=== PATIENT | female | born 1955 | race Caucasian/White ===

== ENCOUNTER → 2016-12-18 | Outpatient (CLI) | payer BC ==
[2015-01-21 15:08] VITALS: BP 130/75
[~2016-12-18] MED LIST: FAMO-63 PO; RANI150C PO; RIZA10TA PO; cpap
--- NOTE | 2016-12-18 16:03 | RAD ---
DATE: 12/18/2016 EXAM: DIGITAL SCREEN BILAT W/CAD HISTORY: Routine screening COMPARISON: 12/11/2015 This study was interpreted with the benefit of Computerized Aided Detection (CAD). The breast parenchyma is primarily fatty replaced. Breast parenchyma level density A. FINDINGS: No new or enlarging breast densities are seen. Benign type calcifications are again noted. No suspicious microcalcifications have developed. IMPRESSION: Stable mammograms without evidence of malignancy. BI-RADS CATEGORY: 2 BENIGN FINDING(S) RECOMMENDED FOLLOW-UP: 12M 12 MONTH FOLLOW-UP PQRS compliance statement: Patient information was entered into a reminder system with a target due date for the next mammogram. Mammography is a sensitive method for finding small breast cancers, but it does not detect them all and is not a substitute for careful clinical examination. A negative mammogram does not negate a clinically suspicious finding and should not result in delay in biopsying a clinically suspicious abnormality. "Our facility is accredited by the [employer] Mammography [employer]."
== END | disposition home or self-care (01) ==
LOC: MAMMO 15:32
PROVIDERS: ATTEND Family Medicine
DX: Z12.31 Encounter for screening mammogram for malignant neoplasm of breast (principal); Z80.3 Family history of malignant neoplasm of breast
CPT/HCPCS: G0202; 77067

== ENCOUNTER → 2017-02-18 | Outpatient (CLI) | payer BC ==
[2015-01-21 15:08] VITALS: BP 130/75
[~2017-02-18] MED LIST changes: +IOHEXOL 300 MG/ML 100ML VIAL. IV ONE
--- NOTE | 2017-02-18 15:32 | KCIC ---
PQRS Compliance Statement: One or more of the following individualized dose reduction techniques were utilized for this examination: 1. Automated exposure control 2. Adjustment of the mA and/or kV according to patient size 3. Use of iterative reconstruction technique CT ABDOMEN WO/W CONTRAST Clinical Indication: Bilateral renal cysts. Follow-up. Comparison: CT abdomen and pelvis with contrast January 18, 2015, [facility]. TECHNIQUE: Helical CT imaging of the abdomen is performed before and after 100 cc Omnipaque 300 IV contrast. Postcontrast imaging occurred late corticomedullary phase and delayed phase. Findings: 8 mm cortical cyst in the lower pole of the right kidney is stable. Partially exophytic cyst in the interpolar right kidney measures up to 3.3 cm, previously 1.8 cm. Attenuation measures simple fluid. There is no enhancement. Tiny right cortical hypodensity, image 65 series 3 is stable. This finding may be an angiomyolipoma. Exophytic cyst at the lower pole of the left kidney is stable measuring 1.3 cm. Kidneys enhance symmetrically. No hydronephrosis. No renal calculus. No filling defect in the renal pelves on the delayed images. Left adrenal adenoma is stable in size, measures 5 Hounsfield units on precontrast images. The right adrenal gland is normal. There is minimal dependent atelectasis or scarring in the bilateral lower lobes. Cardiac size normal. Cholelithiasis. Liver, spleen, pancreas, and abdominal aorta caliber are normal. No dilated small bowel. No colon wall thickening. No abdominal adenopathy or free fluid. There is bilateral L5 spondylolysis, partially seen on the last image. Vacuum disc phenomenon L4/L5. Anterolisthesis of L5 on S1 is noted on prior study. IMPRESSION: 1. There are simple bilateral renal cysts. Largest cyst on the right has mildly increased in size. 2. Stable left adrenal adenoma. 3. Cholelithiasis. Electronically signed by: Kavon Alarcon MD (02/18/2017 3:28 PM) [id number]
== END | disposition home or self-care (01) ==
LOC: KCIC CT 14:02
PROVIDERS: ATTEND Family Medicine
DX: N28.1 Cyst of kidney, acquired (principal); K80.20 Calculus of gallbladder without cholecystitis without obstruction; D35.02 Benign neoplasm of left adrenal gland
CPT/HCPCS: 74170; Q9967

== ENCOUNTER 2017-03-19 15:47 | Emergency (ER) | payer BC ==
[2017-03-19 19:15] LABS: INFLUENZA A PATIENT NEGATIVE (NEGATIVE); INFLUENZA B PATIENT NEGATIVE (NEGATIVE); OBC FLU VALID
== END 2017-03-19 20:16 | disposition home or self-care (01) ==
LOC: ER 15:47
DX: B34.9 Viral infection, unspecified (principal); K21.9 Gastro-esophageal reflux disease without esophagitis; G47.30 Sleep apnea, unspecified; G43.909 Migraine, unspecified, not intractable, without status migrainosus; Z90.710 Acquired absence of both cervix and uterus; Z98.51 Tubal ligation status; Z88.0 Allergy status to penicillin; Z88.2 Allergy status to sulfonamides
CPT/HCPCS: 87804; 87804-59; 93005; 99285-25

== ENCOUNTER → 2017-12-01 | Outpatient (CLI) | payer BC ==
[2017-03-19 18:15] VITALS: BP 162/94
[~2017-12-01] MED LIST changes: +ACET-704 PO; -IOHEXOL 300 MG/ML 100ML VIAL. IV ONE
--- NOTE | 2017-12-01 15:21 | RAD ---
DATE: 12/01/2017 EXAM: MAMMO ETHEL SCREENING BILATERAL HISTORY: Routine screening COMPARISON: 12/18/2016 This study was interpreted with the benefit of Computerized Aided Detection (CAD). Breast Density: FATTY The breast parenchyma is primarily fatty replaced. Breast parenchyma level density A. FINDINGS: 2-D and 3-D tomosynthesis imaging was performed in CC and MLO projections. No new or enlarging breast densities are seen. Benign type calcifications are present. No suspicious microcalcifications have developed. IMPRESSION: Stable mammograms without evidence of malignancy. BI-RADS CATEGORY: 2 BENIGN FINDING(S) RECOMMENDED FOLLOW-UP: 12M 12 MONTH FOLLOW-UP PQRS compliance statement: Patient information was entered into a reminder system with a target due date for the next mammogram. Mammography is a sensitive method for finding small breast cancers, but it does not detect them all and is not a substitute for careful clinical examination. A negative mammogram does not negate a clinically suspicious finding and should not result in delay in biopsying a clinically suspicious abnormality. "Our facility is accredited by the [employer] Mammography Program."
== END | disposition home or self-care (01) ==
LOC: MAMMO 12:30
PROVIDERS: ATTEND Family Medicine
DX: Z12.31 Encounter for screening mammogram for malignant neoplasm of breast (principal)
CPT/HCPCS: 77063; 77067

== ENCOUNTER → 2018-12-07 | Outpatient (CLI) | payer BC ==
[2017-03-19 18:15] VITALS: BP 162/94
--- NOTE | 2018-12-08 15:44 | RAD ---
DATE: 12/07/2018 EXAM: MAMMO ETHEL SCREENING BILATERAL HISTORY: Routine screening COMPARISON: 12/18/2016, 12/01/2017 mammographic exams This study was interpreted with the benefit of Computerized Aided Detection (CAD). Breast Density: SCATTERED The breast parenchyma shows scattered fibroglandular densities. Breast parenchyma level B. FINDINGS: No suspicious calcifications, masses, or distortion. IMPRESSION: Stable BI-RADS CATEGORY: 1 NEGATIVE RECOMMENDED FOLLOW-UP: 12M 12 MONTH FOLLOW-UP PQRS compliance statement: Patient information was entered into a reminder system with a target due date for the next mammogram. Mammography is a sensitive method for finding small breast cancers, but it does not detect them all and is not a substitute for careful clinical examination. A negative mammogram does not negate a clinically suspicious finding and should not result in delay in biopsying a clinically suspicious abnormality. "Our facility is accredited by the [employer] Mammography [employer]."
== END | disposition home or self-care (01) ==
LOC: MAMMO 09:26
PROVIDERS: ATTEND Family Medicine
DX: Z12.31 Encounter for screening mammogram for malignant neoplasm of breast (principal)
CPT/HCPCS: 77063; 77067

== ENCOUNTER → 2019-11-25 | Outpatient (CLI) | payer BC ==
[2017-03-19 18:15] VITALS: BP 162/94
--- NOTE | 2019-11-25 18:23 | RAD ---
BILATERAL SCREENING MAMMOGRAM, 3-D History: Routine screening. Comparison: 01/04/2013, 12/11/2015, 12/18/2016, 12/01/2017, 12/07/2018. Technique: MLO and CC digital tomosynthesis (3D) images obtained. Radiologist reviewed these images on dedicated workstation. Findings: Breast Tissue Density B : There are scattered areas of fibroglandular density. There are no dominant masses, suspicious microcalcifications, or architectural distortion. IMPRESSION: No mammographic evidence of malignancy. Recommend routine screening. BI-RADS category 1: Negative. The images were reviewed with computer-aided detection. Patient information is entered into reminder system with a target due date for the next screening mammogram. Mammography is the most sensitive method for finding small breast cancers, but it does not detect them all and is not a substitute for careful clinical examination. A negative mammogram does not negate a clinically suspicious finding and should not result in delay in biopsying a clinically suspicious abnormality. "Our facility is accredited by the [employer] Mammography [employer]." Electronically signed by: Anoop Lester MD (11/25/2019 6:20 PM) [email or web address]
== END | disposition home or self-care (01) ==
LOC: MAMMO 13:06
PROVIDERS: ATTEND Family Medicine
DX: Z12.31 Encounter for screening mammogram for malignant neoplasm of breast (principal)
CPT/HCPCS: 77063; 77067